=== PATIENT | female | born 1985 | race Caucasian/White ===

== ENCOUNTER 2017-02-13 00:24 | Emergency (ER) | payer SELFPAY ==
--- NOTE | 2017-02-13 00:48 | NUR ---
PT DECIDED NOT TO BE SEEN [facility]
== END 2017-02-13 00:50 | disposition left against medical advice (07) ==
LOC: ER 00:24
DX: Z53.21 Procedure and treatment not carried out due to patient leaving prior to being seen by health care provider (principal)